=== PATIENT | male | born 1950 | race Caucasian/White ===

== ENCOUNTER → 2024-12-01 | Day surgery (SDC) | payer MEDICARE ==
[~2024-12-01] MED LIST: ALLOPURINOL100 MG PO; AMLODIPINE BESY10 MG PO; COREG12.5 MG PO; FENTANYL CITRATE/PF 100MCG/2 ML INJ ONE; FINASTERIDE5 MG PO; FLOMAX0.4 MG PO; IRBESARTAN-HCT1 EAC1 PO; PHENYLEPHRINE HCL 1% 10 MG/ML VIAL ONE; PROPOFOL IV EMULSION 10 MG/ML 20 ML VIAL ONE; SERTRALINE HCL100 MG PO; SIMVASTATIN20 MG PO; SODIUM CHLORIDE 0.9% 100 ML ONE; SUCCINYLCHOLINE CHLORIDE 20 MG/ML 10ML VIAL ONE
[2024-12-01 06:31] LABS: BASOPHILS # (AUTO) 0.1 (0.0-0.1); BASOPHILS % 0.5 % (0.0-1.0); EOSINOPHILS # (AUTO) 0.3 (0.0-0.4); EOSINOPHILS % 2.2 % (0.0-6.0); HEMATOCRIT 39.8 % (38.2-49.6); HEMOGLOBIN 13.3 g/dL (14.0-18.0); LYMPHOCYTES # (AUTO) 1.8 (1.0-3.2); MEAN CORPUSCULAR HEMOGLOBIN 30.9 pg (28-32); MEAN CORPUSCULAR HGB CONC 33.4 g/dL (31-35); MEAN CORPUSCULAR VOLUME 92.3 fL (81-99); MONOCYTES % 7.9 % (4.4-11.3); NEUTROPHILS # (AUTO) 9.5 (2.1-6.9); NEUTROPHILS % 74.1 % (38.7-80.0); PLATELET COUNT 267 x10e3/uL (140-360); RED BLOOD COUNT 4.31 x10e6/uL (4.3-5.7); RED CELL DISTRIBUTION WIDTH 13.2 % (11.7-14.4); WHITE BLOOD COUNT 12.85 x10e3/uL (4.8-10.8)
[2024-12-01] MEDS: SODIUM CHLORIDE 0.9% 1000ML 1,000 ML ONE (06:35)
[2024-12-01] MEDS: CEFAZOLIN SODIUM 2 GM ONE (06:37)
[2024-12-01 06:43] LABS: ANION GAP 16.7 mmol/L (8-16); CALCIUM 9.2 mg/dL (8.4-10.2); CREATININE, SERUM 1.44 mg/dL (0.72-1.25); POTASSIUM 4.7 mmol/L (3.5-5.1)
[2024-12-01 09:10] VITALS: TEMP 98.6
[2024-12-01 10:40] VITALS: BP 136/85; PULSE 65; RESP 18; O2SAT 97
== END | disposition home or self-care (01) ==
LOC: OR 05:49
PROVIDERS: ATTEND Urology
DX: N43.3 Hydrocele, unspecified (principal); N43.42 Spermatocele of epididymis, multiple; R31.29 Other microscopic hematuria; N32.89 Other specified disorders of bladder; N40.1 Benign prostatic hyperplasia with lower urinary tract symptoms; N13.8 Other obstructive and reflux uropathy; G47.33 Obstructive sleep apnea (adult) (pediatric); I10 Essential (primary) hypertension; E78.5 Hyperlipidemia, unspecified; Z79.899 Other long term (current) drug therapy
CPT/HCPCS: 36415; 52000; 55040; 71046; 80048; 85025; 88302; 88304; 93005; J0330; J2371; J2704; J3010; J7030; J7050